=== PATIENT | female | born 1995 | race Caucasian/White ===

== ENCOUNTER 2024-08-07 11:13 | Outpatient (RCR) | payer OTHER, SELFPAY ==
--- NOTE | 2024-08-07 12:46 | HO.PHP ---
This program writer met with Laly Quintanilla this morning for the purpose of completing an intake assessment for PHP tx. The patient was referred through [facility] at [employer]. We were discussing PHP,this program writer was explaining PHP to her, when the patient stated that she didn't think she could attend PHP because she is a student at [employer] and she didn't think she could get the time off. We discussed this further,this program writer suggested that she speak with someone in the disability office to explore taking time off. At this point the patient began to escalate and she began yelling,hitting herself on the head and banging her head against the wall yelling, that she doesn't understand what to do and that she needs help. PHP staff came into this program writer's office attempting to assist in de-escalating the patient. The patient sat on the floor and continued yelling,hitting herself,banging her head and kicking the wall. Security and Crisis were contacted. Audrey Hitchcock the director of crisis services signed a Sec 12,she spoke with the patient about going to the ED for a crisis evaluation,the patient agreed to go the the ED and be accompanied by Arabella,the behavioral health director and Audrey,the director of crisis services.
== END 2024-08-07 12:21 | disposition home or self-care (01) ==
LOC: HO.PHPA 11:13
PROVIDERS: Visit Provider Psychiatry & Neurology Psychiatry
DX: F32.A Depression, unspecified (principal); F41.9 Anxiety disorder, unspecified

== ENCOUNTER 2024-08-07 11:47 | Emergency (ER) | payer MEDICAID, SELFPAY ==
[2024-08-07 11:49] VITALS: BP 121/78; PULSE 75; RESP 14; TEMP 36.9; O2SAT 98; BMI 17.5
--- NOTE | 2024-08-07 12:34 | ED_ITS ---
HPI - General Adult General Chief complaint: Psychiatric Symptoms Stated complaint: crisis Time Seen by Provider: 08/07/24 12:33 Source: patient Mode of arrival: ambulatory Limitations: no limitations History of Present Illness ED Provider: Dang Ospina PA-C HPI narrative: Patient is a 29 year old assigned female at with no reported medical history presenting to the emergency department today after having an emotional break down in the partial hospitalization office. Patient states that she became overwhelmed at the issue and began to cry excessively. Patient states that she was unable to calm down so they sent her here but she now feels OK. Patient denies any dizziness, lightheadedness, abdominal pain, nausea, vomiting, fever, chills, blurry vision, double vision, loss of vision, chest pain, difficulty breathing, shortness of breath, back pain, night sweats, pain with urination, increased urinary frequency, increased urinary urgency, blood in her urine or stool, syncope or a near syncopal episode, recent trauma or falls, bowel incontinence, bladder incontinence, or any other complaints at this time. Relieving factors: none Exacerbating factors: none Associated symptoms: denies other symptoms Treatments prior to arrival: none Related Data Allergies Allergy/AdvReac Type Severity Reaction Status Date / Time Penicillins Allergy Hives Verified 08/07/24 11:51 Review of Systems 2 Constitutional: Constitutional: Reports no additional constitutional complaints, Denies chills, Denies fever(s) and Denies night sweats Eyes: Eyes: Reports no additional eye complaints, Denies blurry vision, Denies change in vision, Denies diplopia, Denies eye discharge, Denies loss of vision and Denies eye pain ENT: Denies dizziness Cardiovascular: Cardiovascular: Reports no additional cardiovascular complaints, Denies chest pain, Denies lightheadedness, Denies Loss of Consciousness and Denies dyspnea Respiratory: Respiratory: Reports no additional respiratory complaints and Denies dyspnea Gastrointestinal: Gastrointestinal: Reports no additional gastrointestinal complaints, Denies abdominal pain, Denies melena, Denies hematochezia, Denies change in bowel habits and Denies change in stool character Genitourinary: Genitourinary: Denies hematuria, Denies urinary frequency, Denies dysuria, Denies urinary incontinence, Denies urinary hesitancy and Denies urinary urgency Musculoskeletal: Musculoskeletal: Reports no additional musculoskeletal complaints, Denies numbness and Denies tingling Neurologic: Denies dizziness, Denies loss of vision, Denies numbness and Denies tingling Psychiatric: Psychiatric: Reports no additional psychiatric complaints Endocrine: Endocrine: Reports no additional endocrine complaints Hematologic/Lymphatic: Hematologic/Lymphatic: Reports no additional hematologic/lymphatic complaints Allergic/Immunologic: Allergic/Immunologic: Reports no additional allergic/immunologic complaints PMFSH Past Medical History Attestation statement: The following information was validated with the patient. Source: old records reviewed and nursing notes reviewed Social History Social History Unable to assess alcohol history related to: Unknown Advance Directives: No Do you have a plan to hurt others: No Plan Physical Exam ED Vital Signs: Vital Signs - 24 hr 08/07/24 11:49 Temperature 98.4 F Pulse Rate 75 Respiratory Rate 14 Blood Pressure 121/78 Pulse Oximetry 98 Oxygen Delivery Method Room Air BMI result Body Mass Index 17.5 Const General: cooperative, no acute distress, alert and awake Nutritional Appearance: well nourished Orientation/consciousness: patient oriented x3 Limitations: no limitations HENMT Head: Yes normal to inspection and Yes atraumatic Ears: hearing grossly normal bilaterally and external ears normal General nose exam: Normal external nose present, no nasal discharge noted and no epistaxis Face and sinus: Yes normal facial exam, No abrasion and No laceration Mouth: Normal oral and palatal mucosa present, no drooling and no muffled voice Eyes General: appearance normal, both eyes and all related structures Periorbital: periorbital findings normal Eyelids: Yes eyelids normal Conjunctivae: conjunctivae normal Pupils: Equal, round and reactive pupils present EOM: EOMs intact bilaterally Neck Neck: Yes normal visual inspection, Yes full ROM and Yes no lymphadenopathy Chest Chest palpation & inspection: normal inspection of the chest Resp Effort & Inspection: normal respiratory effort and able to speak in complete sentences GI Inspection: Yes normal to inspection Neuro General: patient oriented x3 and moves all extremities Cranial nerves: Yes Equal, round and reactive pupils present Cognition (Neuro): normal cognition Extrem General: Yes normal to inspection, Yes full ROM and Yes capillary refill normal Psych Appearance: grossly normal Mental Status: mental status grossly normal Affect: normal affect Attitude: cooperative Thought process: Normal thought process present Thought content: Normal thought content present Insight: Good insight present (Psych) Medical Decision Making Medical Decision Making MDM Narrative: Patient is a 29 year old assigned female at with no reported medical history presenting to the emergency department today after a mental breakdown. Patient's physical exam was unremarkable. Patient's blood work was unremarkable. Patient was evaluated by the CARE team who recommended discharge. I explained my physical exam findings as well as all test results to the patient. I answered all questions asked by the patient. I stressed the importance of the patient taking her medication as directed (either prescribed or as the over the counter packaging recommends). I stressed the importance of the patient following up with her primary care provider. I stressed the importance of the patient returning to the emergency department immediately if she were to develop any dizziness, shortness of breath, difficulty breathing, chest pain, blurry vision, loss of vision, nausea, vomiting, abdominal pain, fever, chills, back pain, or any other complaints. Patient verbalized agreement and understanding with this treatment plan and discharge. Differential Diagnosis Differential Diagnoses: The differential diagnosis associated with the presentation includes Mental health crisis Overwhelmed Stress reaction Admission/Observation Consideration of admission/observation: Escalation of care including admission/observation considered Patient would have been admitted to the hospital had her work up had any findings where hospital admission was appropriate and her clinical presentation warranted hospital admission. Consult Healthcare Provider Management of the patient was discussed with: Behavioral Health Provider (spoke to the CARE team as noted in the MDM Rationale portion of this note.) Lab Data [facility] Lab Attestation statement: I reviewed the patient's lab results. My interpretation of these results are in the MDM Rationale portion of this note. 08/07/24 12:38 08/07/24 12:38 Labs: Lab Results 08/07/24 Range/Units 12:38 WBC 5.9 (4.8-10.8) X10*3/uL RBC 4.48 (4.20-5.50) X10*6/uL Hgb 13.9 (12.0-16.0) g/dl Hct 40.8 (37.0-47.0) % MCV 91.1 (80.0-98.0) fL MCH 31.0 (27.0-33.0) pg MCHC 34.1 (31.0-35.0) g/dl RDW 13.7 (11.0-16.0) % Plt Count 158 L (160-400) X10*3/uL MPV 9.4 (9.4-12.3) fL Immature Gran % (Auto) 0.2 (0.0-0.4) % Neut % (Auto) 52.7 (45-73) % Lymph % (Auto) 38.5 (20-40) % [place] % (Auto) 7.4 (2-11) % Eos % (Auto) 0.9 (0-4) % Baso % (Auto) 0.3 (0-2) % Lymph # (Auto) 2.3 (1.2-4.9) X10*3/uL [place] # (Auto) 0.4 (0.1-1.2) X10*3/uL Eos # (Auto) 0.1 (0.0-0.4) X10*3/uL Baso # (Auto) 0.0 (0.0-0.2) X10*3/uL Abs Immat Gran (auto) 0.01 (0.00-0.03) X10*3/uL Absolute Neuts (auto) 3.1 (2.0-8.3) x10*3/uL Absolute Nucleated RBC 0.000 (0.0-0.012) X10*3/uL Nucleated RBC % (auto) 0.0 (0.0-0.2) /100WBC Sodium 139 (135-145) mmol/L Potassium 4.7 (3.3-5.1) mmol/L Chloride 105 (96-108) mmol/L Carbon Dioxide 26 (22-29) mmol/L Anion Gap 13 (12-20) BUN 12 (9-16) mg/dL Creatinine 0.79 (0.5-1.4) mg/dL Estim Creat Clear Calc 88.1 Estimated GFR > 60 Random Glucose 100 (60-115) mg/dL Calcium 9.9 (8.4-10.2) mg/dL Total Bilirubin 0.6 (0.0-1.0) mg/dL AST 20 (5-31) U/L ALT 13 (0-31) U/L Alkaline Phosphatase 65 (39-117) U/L Total Protein 8.4 H (6.5-8.0) g/dL Albumin 4.7 (3.5-5.0) g/dL Urine Test NEGATIVE (NEGATIVE) Urine Opiates Screen Not Detected (Not Detect) Ur Buprenorphine Scrn Not Detected (Not Detect) ng/mL Ur Oxycodone Screen Not Detected (Not Detect) ng/mL Urine Methadone Screen Not Detected (Not Detect) ng/mL Urine Fentanyl Screen Not Detected (Not Detect) Ur Barbiturates Screen Not Detected (Not Detect) Ur Phencyclidine Scrn Not Detected (Not Detect) Ur Amphetamines Screen Not Detected (Not Detect) U Benzodiazepines Scrn Not Detected (Not Detect) Urine Cocaine Screen Not Detected (Not Detect) U Marijuana (THC) Screen Not Detected (Not Detect) Discharge Plan Discharge Clinical Impression: Stress Patient Disposition: Home, Self-Care Instructions: Stress (ED) Additional Instructions: Follow up with your primary care provider. Return to the emergency department immediately if your symptoms worsen or if you develop any dizziness, shortness of breath, difficulty breathing, chest pain, blurry vision, loss of vision, nausea, vomiting, abdominal pain, fever, chills, back pain, or any other complaints. [facility] at [facility]: [address] [place] [id number] Walk in hours from 10am - 12pm Open from 10am - 12pm [facility] Crisis Services: [address] [place] [address] Walk in hours from 10am - 12pm Open 24/04 Behavioral health Network: [address] [place] [id number] [address] [place] [id number] Hours: M-F 8am to 8pm Monday and Monday 9am to 5pm Referrals: [facility] [place] [facility] Family Medicine [Provider Group] (Call to establish and follow up with a primary care provider. If you already have a primary care provider, please follow up with them.) [facility] Primary Care, Sherine [Provider Group] (Call to establish and follow up with a primary care provider. If you already have a primary care provider, please follow up with them.) [facility] Primary CareBetty [Provider Group] (Call to establish and follow up with a primary care provider. If you already have a primary care provider, please follow up with them.) Interventions: [place]-Suicide Risk Severity Scale Last Done: 08/07/24 12:57 Print Language: Swiss
[2024-08-07 12:45] LABS: MANUAL DIFF FLAG NO
[2024-08-07 12:47] LABS: Basophils Percent Auto 0.3 % (0-2); Eosinophils Absolute Auto 0.1 X10*3/uL (0.0-0.4); Eosinophils Percent Auto 0.9 % (0-4); Hematocrit 40.8 % (37.0-47.0); Hemoglobin 13.9 g/dl (12.0-16.0); Imm Gran Abs Auto 0.01 X10*3/uL (0.00-0.03); Imm Gran Pct Auto 0.2 % (0.0-0.4); Lymphocytes Absolute Auto 2.3 X10*3/uL (1.2-4.9); Lymphocytes Percent Auto 38.5 % (20-40); Mean Corpuscular HGB Conc 34.1 g/dl (31.0-35.0); Mean Corpuscular Volume 91.1 fL (80.0-98.0); Mean Platelet Volume 9.4 fL (9.4-12.3); Monocytes Absolute Auto 0.4 X10*3/uL (0.1-1.2); Monocytes Percent Auto 7.4 % (2-11); Neutrophils Absolute Auto 3.1 x10*3/uL (2.0-8.3); Neutrophils Percent Auto 52.7 % (45-73); Platelet Count 158 X10*3/uL (160-400); Red Blood Count 4.48 X10*6/uL (4.20-5.50); Red Cell Distribution Width 13.7 % (11.0-16.0); White Blood Count 5.9 X10*3/uL (4.8-10.8)
[2024-08-07 12:59] LABS: Amphetamine Screen Urine Not Detected (Not Detect); Barbiturates, Urine Not Detected (Not Detect); Benzodiazepines Screen Urine Not Detected (Not Detect); Buprenorphine Scr Not Detected (Not Detect); Cannabinoid Screen Urine Not Detected (Not Detect); Cocaine Screen Urine Not Detected (Not Detect); Fentanyl, urine Not Detected (Not Detect); Methadone Screen, Urine Not Detected (Not Detect); Opiate Screen Urine Not Detected (Not Detect); Oxycodone Screen Urine Not Detected (Not Detect); Phencyclidine Screen Urine Not Detected (Not Detect)
[2024-08-07 13:02] LABS: UPreg QC Valid YES; Urine Pregnancy NEGATIVE (NEGATIVE)
[2024-08-07 13:08] LABS: Alanine Aminotransferase 13 U/L (0-31); Albumin Level 4.7 g/dL (3.5-5.0); Alkaline Phosphatase 65 U/L (39-117); Anion Gap 13 (12-20); Aspartate Amino Transferase 20 U/L (5-31); Bilirubin Total 0.6 mg/dL (0.0-1.0); Blood Urea Nitrogen 12 mg/dL (9-16); Calcium 9.9 mg/dL (8.4-10.2); Carbon Dioxide 26 mmol/L (22-29); Chloride 105 mmol/L (96-108); Creatinine Clr Calc Pharmacy 88.1; Estimated Glomerular Filt Rate > 60; Glucose Random 100 mg/dL (60-115); Potassium 4.7 mmol/L (3.3-5.1); Sodium 139 mmol/L (135-145); Total Protein 8.4 g/dL (6.5-8.0)
[2024-08-07 15:53] VITALS: BP 98/60; PULSE 68; RESP 14; TEMP 36.7; O2SAT 98
--- NOTE | 2024-08-07 17:05 | MHC.CARE ---
CC referral complete.
--- NOTE | 2024-08-07 22:19 | MHC.CARE ---
RAD Team completed an [facility] referral for this pt via email. Will follow up tomorrow.
== END 2024-08-07 15:54 | disposition home or self-care (01) ==
PROVIDERS: Emergency Provider Emergency Medicine
DX: F43.9 Reaction to severe stress, unspecified (principal)
CPT/HCPCS: 36415; 80053; 80307; 81025; 85025; 99284; S9485

== ENCOUNTER 2024-12-16 00:10 | Emergency (ER) | payer MEDICAID, SELFPAY ==
--- NOTE | 2024-12-16 | ECG_ITS ---
Test Reason : CP Blood Pressure : */* mmHG Vent. Rate : 69 BPM Atrial Rate : 69 BPM P-R Int : 130 ms QRS Dur : 88 ms QT Int : 398 ms P-R-T Axes : 72 81 46 degrees QTcB Int : 426 ms Normal sinus rhythm Normal ECG No previous ECGs available Referred By: Generic ED Physician Electronically Signed By: Eddy Mcmillan
[2024-12-16 00:20] VITALS: BP 122/68; PULSE 70; RESP 17; TEMP 36.7; O2SAT 99; BMI 17.2
--- NOTE | 2024-12-16 00:28 | ED_ITS ---
HPI - Chest Pain General Chief Complaint: Chest Pain Stated Complaint: chest pain Time Seen by Provider: 12/16/24 00:28 History of Present Illness ED Provider: Neymar ROWLAND narrative: The patient is a 29-year-old female who has no significant past medical history who says that she has had discomfort in her lower midsternal area starting yesterday. She says that she has been a smoker but had not smoked for several weeks. Yesterday she felt a pain in her lower midsternal area and also felt somewhat generally unwell. She had intermittent headaches. She does not normally have intermittent headaches. She had no definite fever. No sore throat. No significant cough. No pain or swelling in her legs. Today the discomfort in her mid chest continued. She smoked a few cigarettes today thinking this might help but it did not. Ultimately she decided to come to the emergency room to make sure nothing serious was going on but arriving here she now wonders whether it was appropriate for her to come. She has an IUD but is on no medications. There is no family history of early coronary disease. She thinks her mother might have had some kind of a blood clot emergency in her lifetime but she is not sure if this was a pulmonary embolism. No sore throat. The patient is an art student. Related Data Allergies Allergy/AdvReac Type Severity Reaction Status Date / Time Penicillins Allergy Hives Verified 12/16/24 00:22 Review of Systems 2 Review of Systems: Yes all other systems are reviewed and are negative [facility] Social History Social History Unable to assess alcohol history related to: Unknown Advance Directives: No Advance Directives Information Provided: Yes Do you have a plan to hurt others: No Plan Physical Exam 2 Vital Signs: Vital Signs: Last Vital Signs Temp 98.1 F 12/16/24 00:20 Pulse 70 12/16/24 00:20 Resp 17 12/16/24 00:20 BP 122/68 12/16/24 00:20 Pulse Ox 99 12/16/24 00:20 O2 Del Method Room Air 12/16/24 00:20 BMI result Body Mass Index 17.2 Const: Other: The patient is a slim 29-year-old woman who was awake and alert does not appear in obvious distress or seem obviously acutely ill in any way. HEENT: Other: Face is symmetrical. Pharynx is normal. Mucous membranes moist. Eyes: General: appearance normal, both eyes and all related structures A lignment and Position: alignment normal Eyelids: Yes eyelids normal C onjunctivae: conjunctivae normal Pupils: Equal, round and reactive pupils present EOM: EOMs intact bilaterally Neck: Neck: Yes normal visual inspection, Yes full ROM and Yes no lymphadenopathy Resp: Effort & Inspection: normal respiratory effort Auscultation: clear to auscultation bilaterally Cardio: Rate: regular rate Rhythm: regular rhythm Heart sounds: S1 normal heart sound present, S2 normal heart sound present and Murmur heart sound present (No murmur) GI: Other: The abdomen is flat, soft, and nontender. No right upper quadrant tenderness. Skin: Other: Skin is dry and unremarkable Neuro: Other: The patient is awake and alert with a normal mental status. Cranial nerves 2-12 are intact. She moves her extremities normally. Cranial nerves: Yes Equal, round and reactive pupils present Extrem: Other: No calf swelling or tenderness. No asymmetry. Medications Administered Discontinued Medications Generic Name Dose Route Start Last Admin Trade Name Freq PRN Reason Stop Dose Admin Sucralfate 1 gm 12/16/24 00:53 12/16/24 01:05 Sucralfate Oral Suspension 1 Gm/10 Ml Oral.Susp PO 12/16/24 00:54 1 gm ONCE ONE Administration Medical Decision Making Medical Decision Making [facility] Narrative: The patient is a 29-year-old female who does not seem to have significant past medical history presents for 2 days of chest discomfort. Her physical exam is very reassuring. She has no abdominal tenderness. Her extremities seem normal. Her overall presentation seems quite benign. She has an unremarkable EKG. Labs are unremarkable including an undetectable D-dimer. She has a mild leukopenia with a lymphocytosis. Perhaps she has some mild viral disease. I think she may be discharged to follow up with the regular doctor if symptoms persist. She should return if worse. Lab Data 12/16/24 01:08 12/16/24 01:08 Labs: Lab Results 12/16/24 Range/Units 01:08 WBC 4.6 L (4.8-10.8) X10*3/uL RBC 3.70 L (4.20-5.50) X10*6/uL Hgb 11.7 L (12.0-16.0) g/dl Hct 34.1 L (37.0-47.0) % MCV 92.2 (80.0-98.0) fL MCH 31.6 (27.0-33.0) pg MCHC 34.3 (31.0-35.0) g/dl RDW 13.0 (11.0-16.0) % Plt Count 159 L (160-400) X10*3/uL MPV 9.4 (9.4-12.3) fL Immature Gran % (Auto) 0.2 (0.0-0.4) % Neut % (Auto) 41.0 L (45-73) % Lymph % (Auto) 51.2 H (20-40) % [place] % (Auto) 5.9 (2-11) % Eos % (Auto) 1.3 (0-4) % Baso % (Auto) 0.4 (0-2) % Lymph # (Auto) 2.3 (1.2-4.9) X10*3/uL [place] # (Auto) 0.3 (0.1-1.2) X10*3/uL Eos # (Auto) 0.1 (0.0-0.4) X10*3/uL Baso # (Auto) 0.0 (0.0-0.2) X10*3/uL Abs Immat Gran (auto) 0.01 (0.00-0.03) X10*3/uL Absolute Neuts (auto) 1.9 L (2.0-8.3) x10*3/uL Absolute Nucleated RBC 0.000 (0.0-0.012) X10*3/uL Nucleated RBC % (auto) 0.0 (0.0-0.2) /100WBC D-Dimer High Sensitivty < 150 NG/ML Sodium 142 (135-145) mmol/L Potassium 3.5 D (3.3-5.1) mmol/L Chloride 111 H (96-108) mmol/L Carbon Dioxide 23 (22-29) mmol/L Anion Gap 12 (12-20) BUN 12 (9-16) mg/dL Creatinine 0.74 (0.5-1.4) mg/dL Estim Creat Clear Calc 92.7 Estimated GFR > 60 Random Glucose 116 H (60-115) mg/dL Calcium 8.8 D (8.4-10.2) mg/dL Total Bilirubin 0.3 (0.0-1.0) mg/dL AST 22 (5-31) U/L ALT 12 (0-31) U/L Troponin I High Sens < 2.7 (<3.5-17.0) ng/L C-Reactive Protein < 0.10 (< or = 0.50) mg/dL Total Protein 7.1 (6.5-8.0) g/dL Albumin 4.0 (3.5-5.0) g/dL Lipase 29 (8-78) U/L Beta HCG, Quant < 2 mIU/mL Independent Interpretation I performed an independent interpretation of an: EKG Interpretation: EKG at 015 shows normal sinus rhythm at 69 beats per minute. It is a normal EKG. Discharge Plan Discharge Clinical Impression: Chest pain Patient Disposition: Home, Self-Care Additional Instructions: Your testing in the emergency room today is very reassuring. There does not seem to be any acutely dangerous process at work. Please plan on following up with your regular doctor if you have any significant ongoing symptoms. Return to the emergency room if significantly worse. Referrals: Esperanza Goldberg MD [Physician] - (chest pain) Print Language: Greenlandic
--- NOTE | 2024-12-16 00:37 | PC.NURSE ---
Pt is a 29 y/o female who presents to the ED from home for evaluation of substernal chest pain/heaviness that has been ongoing since yesterday. Pain is non-radiating and rated 2/10 at this time. No similar episodes reported in the past. Pain/heaviness is accompanied by some mild shortness of breath and mild headaches. Denies drugs or alcohol use. Denies abd pain, body aches, problems voiding, fever, or cough. No known sick contacts. No other complaints or concerns at this time.
[2024-12-16] MEDS: Sucralfate Oral Suspension 1 GM/10 ML ORAL.SUSP PO (01:05)
[2024-12-16 01:12] LABS: Basophils Percent Auto 0.4 % (0-2); Eosinophils Absolute Auto 0.1 X10*3/uL (0.0-0.4); Eosinophils Percent Auto 1.3 % (0-4); Hematocrit 34.1 % (37.0-47.0); Hemoglobin 11.7 g/dl (12.0-16.0); Imm Gran Abs Auto 0.01 X10*3/uL (0.00-0.03); Imm Gran Pct Auto 0.2 % (0.0-0.4); Lymphocytes Absolute Auto 2.3 X10*3/uL (1.2-4.9); Lymphocytes Percent Auto 51.2 % (20-40); MANUAL DIFF FLAG NO; Mean Corpuscular HGB Conc 34.3 g/dl (31.0-35.0); Mean Corpuscular Hemoglobin 31.6 pg (27.0-33.0); Mean Corpuscular Volume 92.2 fL (80.0-98.0); Mean Platelet Volume 9.4 fL (9.4-12.3); Monocytes Absolute Auto 0.3 X10*3/uL (0.1-1.2); Monocytes Percent Auto 5.9 % (2-11); Neutrophils Absolute Auto 1.9 x10*3/uL (2.0-8.3); Platelet Count 159 X10*3/uL (160-400); White Blood Count 4.6 X10*3/uL (4.8-10.8)
[2024-12-16 01:20] LABS: D Dimer High Sensitivity < 150 NG/ML
[2024-12-16 01:31] LABS: Alanine Aminotransferase 12 U/L (0-31); Anion Gap 12 (12-20); Aspartate Amino Transferase 22 U/L (5-31); Bilirubin Total 0.3 mg/dL (0.0-1.0); Blood Urea Nitrogen 12 mg/dL (9-16); C Reactive Protein < 0.10 mg/dL (< or = 0.50); Calcium 8.8 mg/dL (8.4-10.2); Carbon Dioxide 23 mmol/L (22-29); Chloride 111 mmol/L (96-108); Creatinine Clr Calc Pharmacy 92.7; Estimated Glomerular Filt Rate > 60; Glucose Random 116 mg/dL (60-115); Lipase 29 U/L (8-78); Potassium 3.5 mmol/L (3.3-5.1); Sodium 142 mmol/L (135-145); Total Protein 7.1 g/dL (6.5-8.0)
[2024-12-16 01:37] LABS: HCG Quantitative < 2 mIU/mL; Troponin-I High Sensitivity < 2.7 ng/L (<3.5-17.0)
[2024-12-16 02:06] LABS: Alkaline Phosphatase 58 U/L (39-117)
[2024-12-16 02:07] LABS: Influenza A PCR NEGATIVE (Negative); Influenza B PCR NEGATIVE (Negative); Resp Syncy Virus RNA Qual PCR NEGATIVE (Negative); SARS COV2 PCR INHOUSE NEGATIVE (Negative)
[2024-12-16 02:22] VITALS: BP 122/68; PULSE 70; RESP 17; TEMP 36.7; O2SAT 99
== END 2024-12-16 02:25 | disposition home or self-care (01) ==
PROVIDERS: Emergency Provider Emergency Medicine
DX: R07.89 Other chest pain (principal); R51.9 Headache, unspecified; Z03.818 Encounter for observation for suspected exposure to other biological agents ruled out; Z79.899 Other long term (current) drug therapy
CPT/HCPCS: 0241U; 36415; 80053; 83690; 84484; 84702; 85025; 85379; 86140; 93005; 99283

== ENCOUNTER → 2024-12-16 00:15 | Outpatient (BNV) | payer MEDICAID, SELFPAY | PROVIDERS: Emergency Provider Emergency Medicine; Visit Provider Internal Medicine Cardiovascular Disease | DX: R07.9 Chest pain, unspecified (principal) | CPT/HCPCS: 93010 ==